=== PATIENT | male | born 1995 | race Caucasian/White ===

== ENCOUNTER → 2021-01-05 | Outpatient (CLI) | payer BC ==
[~2021-01-05] MED LIST: PROHANCE 279.3MG/ML 15ML VIAL As Ordered ONE; PROHANCE 279.3MG/ML 5ML VIAL As Ordered ONE
--- NOTE | 2021-01-05 18:16 | REPVR ---
PROCEDURE INFORMATION: Exam: MR Head Without and With Contrast; Internal Auditory Canals Exam date and time: 01/05/2021 3:59 PM Age: 25 years old Clinical indication: Other: Tinnitis TECHNIQUE: Imaging protocol: MR of the head without and with intravenous contrast. Exam focused on the internal auditory canals. Contrast material: PROHANCE; Contrast volume: 19 ml; Contrast route: INTRAVENOUS (IV); COMPARISON: No relevant prior studies available. FINDINGS: Brain: No cerebellopontine angle mass is seen. The midbrain and seth are normal. There is no evidence of a focal mass. There is no evidence of intracranial hemorrhage. No abnormal extra-axial fluid collections are identified. No definite white matter abnormality is seen. Following gadolinium administration, there is no abnormal enhancement. Ventricles: The ventricles are normal in size and configuration. Sinuses: There is mild sinus mucosal disease, with no air-fluid level identified. Mastoid air cells: There is no mastoid effusion detected. Internal auditory canals: Internal auditory canals are normal in appearance. No intracanalicular mass or abnormal enhancement demonstrated. The inner air structures have an unremarkable appearance. Orbits: The orbits are normal. IMPRESSION: Normal brain MRI, with normal appearance of the internal auditory canals. Electronically signed by: Sonam Camara On 01/05/2021 18:16:02 PM
== END ==
LOC: M RAD 13:56
PROVIDERS: ATTEND Otolaryngology
DX: H93.12 Tinnitus, left ear (principal)
CPT/HCPCS: 70553; A9576

== ENCOUNTER → 2021-01-27 | Outpatient (CLI) | payer BC ==
--- NOTE | 2021-01-27 11:39 | REPVR ---
PROCEDURE INFORMATION: Exam: CT Temporal Bones Without Contrast. Exam date and time: 01/27/2021 11:29 AM Age: 25 years old Clinical indication: Other: Tinnitus L ear, R/O carotid stenosis; Additional info: Tinnitius lt ear, R/O carotid stenosis and bony de TECHNIQUE: Imaging protocol: Computed tomography images of the temporal bones without contrast. Radiation optimization: All CT scans at this facility use at least one of these dose optimization techniques: automated exposure control; mA and/or kV adjustment per patient size (includes targeted exams where dose is matched to clinical indication); or iterative reconstruction. COMPARISON: MR (DEFAULT PS SERIES, IAC, DEFAULT PRESENTATION STATE) 01/05/2021 3:23 PM FINDINGS: Right inner ear: Normal. Right ossicles and middle ear: Normal. The middle ear ossicles are intact. Right external auditory canal: Normal. Right facial nerve canal: Normal. Right jugular foramen: No jugular dehiscence. Right carotid canal: No aberrant carotid canal. Right mastoid air cells: Normal. No mastoid effusions. Left inner ear: Normal. Left ossicles and middle ear: Normal. The middle ear ossicles are intact. Left external auditory canal: Normal. Left facial nerve canal: Normal. Left jugular foramen: No jugular dehiscence. Left carotid canal: No aberrant carotid canal. Left mastoid air cells: Normal. No mastoid effusions. Soft tissues: Unremarkable. IMPRESSION: No acute findings. Electronically signed by: Susana Brooks On 01/27/2021 11:39:45 AM
--- NOTE | 2021-01-27 11:54 | REP ---
INDICATION: TINNITUS LT EAR, R/O CAROTID STENOSIS AND BONY DE COMPARISON: None. TECHNIQUE: Real-time ultrasound evaluation and duplex Doppler interrogation of the extracranial carotid vasculature is performed. FINDINGS: There is minimal plaquing and narrowing in both carotid bulbs extending into the internal and external carotid arteries. Luminal narrowing is less than 50%. There is no evidence of hemodynamically significant stenosis of either internal carotid artery. Normal flow velocities are seen. The vertebral arteries demonstrate normal direction of flow. RIGHT LEFT Peak systolic velocity ICA 98.5 cm/s 84.8 cm/s End diastolic velocity ICA 25.6 cm/s 22.8 cm/s Peak systolic velocity CCA 155.6 cm/s 170.7cm/s Peak systolic velocity ECA 109.4 cm/s 70.9 cm/s ICA/CCA ratio 0.63 0.50 IMPRESSION: Bilateral luminal narrowing of the internal carotid arteries less than 50%. No evidence of hemodynamically significant stenosis. <Electronically signed by Jose Ling > 01/27/21 [id number]
== END ==
LOC: M RAD 10:54
PROVIDERS: ATTEND Otolaryngology
DX: H93.12 Tinnitus, left ear (principal); I65.23 Occlusion and stenosis of bilateral carotid arteries